=== PATIENT | female | born 1990 | race Caucasian/White ===

== ENCOUNTER → 2020-07-03 | Outpatient (CLI) | payer OTHER ==
--- NOTE | 2020-07-06 08:51 | USB ---
Reason for exam: clinical finding. History: Patient is nulliparous. Family history of breast cancer in maternal aunt at age 61. Physical Findings: Nurse Summary: 0.5cm nodule in the left breast at 2 o'clock, a 1.5cm nodule in the left breast at 2 o'clock (nurse dw). US Breast LT Left complete breast ultrasound includes all four quadrants, the retroareolar region and axilla. Finding demonstrates no cystic or solid lesion seen. Dense tissue throughout. These results were verbally communicated with the patient and result sheet given to the patient on 07/03/20. ASSESSMENT: Incomplete: need additional imaging evaluation, BI-RAD 0 RECOMMENDATION: Follow-up diagnostic mammogram of both breasts. (bilateral MLO views)
--- NOTE | 2020-07-06 08:53 | MM ---
Reason for exam: clinical finding. History: Patient is nulliparous. Family history of breast cancer in maternal aunt at age 61. Physical Findings: Nurse Summary: 0.5cm nodule in the left breast at 2 o'clock, a 1.5cm nodule in the left breast at 2 o'clock (nurse andya). [facility] Diagnostic Mammo w CAD JANY Bilateral MLO view(s) were taken. The breast tissue is extremely dense which could obscure a lesion on mammography. No suspicious calcifications are seen. There is no discrete abnormality. These results were verbally communicated with the patient and result sheet given to the patient on 07/03/20. ASSESSMENT: Benign, BI-RAD 2 RECOMMENDATION: Routine screening mammogram of both breasts at age 42. Manage patient on a clinical basis.
== END | disposition home or self-care (01) ==
LOC: RADMAMWWP 13:15
PROVIDERS: ATTEND Obstetrics & Gynecology
DX: N63.20 Unspecified lump in the left breast, unspecified quadrant (principal); N63.10 Unspecified lump in the right breast, unspecified quadrant; R92.8 Other abnormal and inconclusive findings on diagnostic imaging of breast
CPT/HCPCS: 77066

== ENCOUNTER → 2022-10-13 | Outpatient (CLI) | payer OTHER ==
--- NOTE | 2022-10-13 13:00 | XR ---
EXAMINATION TYPE: XR foot complete RT DATE OF EXAM: 10/13/2022 COMPARISON: NONE HISTORY: Pain TECHNIQUE: Three views are submitted. FINDINGS: The osseous structures are intact. There is no acute fracture or dislocation. Joint spaces are p reserved. IMPRESSION: 1. No acute fracture or dislocation. If symptoms persist, follow-up exam in 7 to 10 days could be ob tained.
== END | disposition home or self-care (01) ==
LOC: RADXRMAIN 12:42
PROVIDERS: ATTEND Internal Medicine
DX: M79.671 Pain in right foot (principal)